=== PATIENT | female | born 1995 | race Caucasian/White ===

== ENCOUNTER 2017-12-11 09:32 | Inpatient (IN) | payer MEDICAID ==
[2017-12-11] MEDS ORDERED: ceFAZolin 2 GM in Premix Bag 1 BAG IV ONE (09:46)
[2017-12-11] MEDS ORDERED: Sodium Chloride 0.9% 10 ML Syringe FLUSH PRN (09:46)
[2017-12-11] MEDS ORDERED: Sodium Chloride 0.9% 2.5 ML Syringe FLUSH PRN (09:46)
[2017-12-11] MEDS: Lactated Ringers 1,000 ML IV SCH ×2 (09:58→10:58)
[2017-12-11] MEDS ORDERED: Oxytocin/0.9 % Sodium Chloride 30 UNIT/500 ML BAG IV SCH (10:00)
[2017-12-11] MEDS ORDERED: Citric Acid/Sodium Citrate Solution 30 ML Cup PO SCH (10:00)
[2017-12-11] MEDS ORDERED: ceFAZolin 1 GM Vial ONE (10:23)
[2017-12-11] MEDS ORDERED: Oxytocin 10 Units/1 ML SDV ONE (10:23)
[2017-12-11] MEDS ORDERED: Sodium Chloride 0.9% 20 ML ONE (10:23)
[2017-12-11] MEDS ORDERED: Morphine PF 1 MG/ML Amp ONE (10:23)
[2017-12-11] MEDS ORDERED: ePHEDrine 50 MG/ML SDV ONE (10:23)
[2017-12-11] MEDS ORDERED: Metoclopramide 10 MG/2 ML SDV ONE (11:00)
[2017-12-11] MEDS ORDERED: Phenylephrine/Normal Saline 100 MCG/ML 10 ML Syringe ONE (11:01)
[2017-12-11] MEDS ORDERED: fentaNYL 100 MCG/2 ML SDV ONE (11:12)
[2017-12-11] MEDS ORDERED: Ketorolac 30 MG/ML SDV ONE (12:09)
--- NOTE | 2017-12-11 12:15 | PCM.POSTAN ---
POST ANESTHESIA ASSESSMENT - MENTAL STATUS Mental Status: Alert, Oriented - RESPIRATORY Respiratory Status: Respiratory Rate WNL, Airway Patent, O2 Saturation Stable - CARDIOVASCULAR CV Status: Pulse Rate WNL, Blood Pressure Stable - GASTROINTESTINAL GI Status: No Symptoms - POST OP HYDRATION Hydration Status: Adequate & Stable
--- NOTE | 2017-12-11 12:35 | OR ---
SURGEON: Ramesh Wood MD DATE OF PROCEDURE: PREOPERATIVE DIAGNOSES: 1. Intrauterine at 39 weeks plus. 2. Previous section, admitted for elective repeat section. POSTOPERATIVE DIAGNOSES: 1. Intrauterine at 39 weeks plus. 2. Previous section, admitted for elective repeat section. OPERATION PERFORMED: Repeat low-transverse section. DRAMA THERAPIST: Kiersten Hernández. ANESTHESIA: Spinal, Ramy Ca and Dr. Bonds. ESTIMATED BLOOD LOSS: 650 mL. COMPLICATIONS: None. FINDINGS: Male fetus. score reported to be 8 and 9. The weight is not available. Normal uterus, tubes, and ovaries. INDICATION FOR SURGERY: This patient is 22. She had a previous section. She is admitted for elective repeat section. Her followup in our clinic was uncomplicated. PROCEDURE IN DETAIL: The patient was brought to the OR, properly identified. After adequate level of spinal anesthesia with a [place] catheter in the bladder, the patient was prepped and draped in sterile fashion as usual. Time-out was taken to identify the patient and then low-transverse Pfannenstiel skin incision was done. Roverto's fascia and rectus fascia were opened in direction of the incision. The 2 recti muscles were and peritoneal cavity was entered. Bladder flap was raised in the usual manner pushing the bladder away from the lower uterine segment. Low-transverse uterine incision was done and extended manually and fetus was in a vertex position, delivered without any problem and handed to the nurse resuscitator, who was present at the time of the delivery. The placenta delivered spontaneous, complete, and intact. Then repair of the lower uterine segment done with 2-0 Vicryl continuous interlocking in 2 layers. Reperitonealization done with 3-0 Vicryl continuous and then the peritoneal cavity closed with 3-0 Vicryl continuous. The rectus fascia was closed with #1 PDS double strand continuous, the Roverto's fascia with 3-0 Vicryl continuous and the skin with Insorb skin clips and Dermabond . The instrument and sponge count was correct. The patient tolerated the procedure well, went to recovery room in stable general condition. PEYTON / JEFERSON /[id number]
[2017-12-11] MEDS ORDERED: Naloxone 0.4 MG/ML Syringe IVPUSH PRN (12:50)
[2017-12-11] MEDS ORDERED: diphenhydrAMINE 50 MG/ML SDV IVPUSH PRN ×2 (12:52→19:21)
[2017-12-11] MEDS ORDERED: Promethazine 12.5 MG Supp RECTAL PRN (13:36)
[2017-12-11] MEDS ORDERED: Scopolamine 1.5 MG Transdermal Patch TRDERM PRN (13:36)
--- NOTE | 2017-12-11 16:10 | PCM.LDHP ---
L&D History of Present Illness - General Date of Service: 12/11/17 Admit Problem/Dx: Patient Status Order with Admit Dx/Problem 12/11/17 09:46 Patient Status [ADT] Routine Admission Diagnosis/Problem Admission Diagnosis/Problem Source of Information: Patient History Limitations: Reports: No Limitations - History of Present Illness Improves with: Reports: None Worsens with: Reports: None Associated Symptoms: Reports: N - Related Data Allergies/Adverse Reactions: Allergies Allergy/AdvReac Type Severity Reaction Status Date / Time No Known Allergies Allergy Verified 12/11/17 14:30 Home Medications: Home Meds . [No Known Home Meds] 11/25/17 [History] Past Medical History Cardiovascular History: Reports: Other (See Below) Other Cardiovascular History: murmur as a child Gastrointestinal History: Reports: Other (See Below) Other Gastrointestinal History: heartburn during Genitourinary History: Reports: None [employer] History: Reports: Endocrine/Metabolic History: Reports: Obesity/BMI 30+, Other (See Below) Other Endocrine/Metabolic History: states gestational diabetic with first - Past Surgical History Head Surgeries/Procedures: Reports: None GI Surgical History: Reports: Cholecystectomy Female Surgical History: Reports: Section Social & Family History - Family History Family Medical History: Noncontributory - Tobacco Use Smoking Status *Q: Never Smoker - Recreational Drug Use Recreational Drug Use: No H&P Review of Systems - Review of Systems: Review Of Systems: See Below General: Reports: No Symptoms HEENT: Reports: No Symptoms Pulmonary: Reports: No Symptoms Cardiovascular: Reports: No Symptoms Gastrointestinal: Reports: No Symptoms Genitourinary: Reports: No Symptoms Musculoskeletal: Reports: No Symptoms Skin: Reports: No Symptoms Psychiatric: Reports: No Symptoms Neurological: Reports: No Symptoms Hematologic/Lymphatic: Reports: No Symptoms Immunologic: Reports: No Symptoms L&D Exam - Exam Exam: See Below - Vital Signs Vital Signs: Last Vital Signs Temp 36.0 C 12/11/17 14:32 Pulse 72 12/11/17 14:32 Resp 14 12/11/17 14:32 BP 123/62 12/11/17 14:32 Pulse Ox 99 12/11/17 14:32 Weight: 105.687 kg - OB Specific Fundal Height In cm: 38 Contraction Intensity: Mild Movement: Active Heart Tones: Present Presentation: Vertex - Exam General: Alert, Oriented HEENT: PERRLA, Conjunctiva Clear, EACs Clear, EOMI, Hearing Intact, Mucosa Moist & [place], Nares Patent, Normal Nasal Septum, Posterior Pharynx Clear, TMs Clear Neck: Supple, Trachea Midline Lungs: Clear to Auscultation, Normal Respiratory Effort Cardiovascular: Regular Rate, Regular Rhythm GI/Abdominal Exam: Normal Bowel Sounds, Soft, Non-Tender, No Organomegaly, No Distention, No Abnormal Bruit, No Mass, Pelvis Stable Rectal Exam: Normal Exam, Normal Rectal Tone Genitourinary: Normal external exam, Normal bimanual exam, Normal speculum exam Back Exam: Normal Inspection, Full Range of Motion Extremities: Normal Inspection, Normal Range of Motion, Non-Tender, No Pedal Edema, Normal Capillary Refill Skin: Warm, Dry, Intact Neurological: Cranial Nerves Intact, Reflexes Equal Bilateral Psychiatric: Alert, Normal Affect, Normal Mood - Patient Data Lab Results Last 24 hrs: Laboratory Results - last 24 hr 12/11/17 12/11/17 12/11/17 Range/Units 09:50 09:50 12:26 WBC 7.18 (4.0-11.0) K/uL RBC 3.84 L (4.30-5.90) M/uL Hgb 10.9 L (12.0-16.0) g/dL Hct 32.1 L (36.0-46.0) % MCV 83.6 (80.0-98.0) fL MCH 28.4 (27.0-32.0) pg MCHC 34.0 (31.0-37.0) g/dL RDW Std Deviation 50.3 (28.0-62.0) fl RDW Coeff of Renetta 17 H (11.0-15.0) % Plt Count 114 L (150-400) K/uL MPV 11.40 (7.40-12.00) fL Nucleated RBC % 0.0 /100WBC Nucleated RBCs # 0 K/uL Blood Type O NEGATIVE Antibody Screen NEGATIVE Screen NEGATIVE (NEGATIVE) RhIG Candidate? YES Rhogam Indicated YES, BABY RH POS H Result Diagrams: 12/11/17 09:50 Problem List Initiated/Reviewed/Updated: Yes Orders Last 24hrs: Active Orders 24 hr Category Date Time Status Patient Status [ADT] Routine ADT 12/11/17 09:46 Active Bradycardia-Neuroaxis [employer] [RC] ROUTINE Care 12/11/17 12:50 Active Non Stress Test [RC] PER UNIT ROUTINE Care 12/11/17 09:46 Active Hypertension-Neuroaxis [employer] [RC] ROUTINE Care 12/11/17 12:50 Active Hypotension-Neuroaxis [employer] [RC] ROUTINE Care 12/11/17 12:50 Active Notify Provider Vital Signs [RC] PRN Care 12/11/17 09:47 Active Oxygen Therapy [RC] PER UNIT ROUTINE Care 12/11/17 12:50 Active Procedure Site Prep Instruct [RC] ASDIRECTED Care 12/11/17 09:46 Active Up ad Chery [RC] ASDIRECTED Care 12/11/17 09:46 Active Verify Patient Consent Obtain [RC] ASDIRECTED Care 12/11/17 09:46 Active Vital Signs [RC] PER UNIT ROUTINE Care 12/11/17 09:46 Active Vital Signs [RC] Q1H Care 12/11/17 12:50 Active SCREEN [BBK] Routine Lab 12/11/17 12:26 Results RH IMMUNE GLOBULIN [BBK] Routine Lab 12/11/17 12:26 Results RHOGAM, [RHIG WORKUP, ] [BBK] Lab 12/11/17 12:26 Results Routine Citric Acid/Sodium Citrate [Bicitra Solution] Med 12/11/17 10:00 Active 30 ml PO .ONCE Lactated Ringers [Ringers, Lactated] 1,000 ml Med 12/11/17 10:00 Active IV .BOLUS Nalbuphine [Nubain] Med 12/11/17 12:50 Active 5 mg IVPUSH Q3H PRN Naloxone [Narcan] Med 12/11/17 12:50 Active 0.1 mg IVPUSH ONETIME PRN Oxytocin/0.9 % Sodium Chloride [Oxytocin 30 Unit/500 ML Med 12/11/17 10:00 Active -NS] 30 unit in 500 ml IV TITRATE Promethazine [Phenadoz] Med 12/11/17 13:36 Active 12.5 mg RECTAL Q6H PRN Scopolamine [Transderm-Scop] Med 12/11/17 13:36 Active 1.5 mg TRDERM .ONCE PRN Sodium Chloride 0.9% [Saline Flush] Med 12/11/17 09:46 Active 10 ml FLUSH ASDIRECTED PRN Sodium Chloride 0.9% [Saline Flush] Med 12/11/17 09:46 Active 2.5 ml FLUSH ASDIRECTED PRN diphenhydrAMINE [Benadryl] Med 12/11/17 12:52 Active 25 mg IVPUSH Q6H PRN AN Neuroaxis [employer] Precaution Reflex [OM.PC] PER Oth 12/11/17 11:00 Ordered UNIT ROUTINE AN Neuroaxis [employer] Precaution Reflex [OM.PC] PER Oth 12/12/17 11:00 Ordered UNIT ROUTINE Peripheral IV Insertion Adult [OM.PC] Routine Oth 12/11/17 09:46 Ordered Schedule Procedure [COMM] Per Unit Routine Oth 12/11/17 09:46 Ordered Resuscitation Status Routine Resus Stat 12/11/17 09:46 Ordered Medication Orders Citric Acid/Sodium Citrate (Bicitra Solution) 30 ml PO .ONCE LISA Diphenhydramine HCl (Benadryl) 25 mg IVPUSH Q6H PRN PRN Reason: pruritis Stop: 12/12/17 11:00 Lactated Ringer's (Ringers, Lactated) 1,000 mls @ 500 mls/hr IV .BOLUS LISA Last Admin: 12/11/17 10:58 Dose: 1,000 mls/hr Infusion: 12/11/17 10:58 Dose: 1,000 mls/hr Admin: 12/11/17 09:58 Dose: 1,000 mls/hr Oxytocin/Sodium Chloride (Oxytocin 30 Unit/500 Ml-Ns) 30 unit in 500 mls @ 250 mls/hr IV TITRATE LISA Nalbuphine HCl (Nubain) 5 mg IVPUSH Q3H PRN PRN Reason: Pruritis Stop: 12/12/17 12:50 Naloxone HCl (Narcan) 0.1 mg IVPUSH ONETIME PRN PRN Reason: RR<6 WITH STIMULATION Stop: 12/12/17 12:51 Promethazine HCl (Phenadoz) 12.5 mg RECTAL Q6H PRN PRN Reason: Nausea/Vomiting Stop: 12/12/17 11:00 Scopolamine (Transderm-Scop) 1.5 mg TRDERM .ONCE PRN PRN Reason: Post Op Nausea Last Admin: 04/30/18 14:00 Dose: 1.5 mg Sodium Chloride (Saline Flush) 10 ml FLUSH ASDIRECTED PRN PRN Reason: Keep Vein Open Sodium Chloride (Saline Flush) 2.5 ml FLUSH ASDIRECTED PRN PRN Reason: Keep Vein Open Assessment/Plan Comment:: Elective C/Section.
[2017-12-11] MEDS ORDERED: Lanolin 100% Cream 7 GM Tube TOP PRN (19:21)
[2017-12-11] MEDS ORDERED: Acetaminophen/oxyCODONE 325-5 MG Tab PO PRN (19:21)
[2017-12-11] MEDS ORDERED: Bisacodyl 10 MG Supp RECTAL PRN (19:21)
[2017-12-11] MEDS ORDERED: Ondansetron 4 MG/2 ML SDV IVPUSH PRN (19:21)
[2017-12-11] MEDS ORDERED: Lactated Ringers 1,000 ML IV SCH (19:30)
[2017-12-11] MEDS: Ketorolac 30 MG/ML SDV IVPUSH SCH (20:15)
[2017-12-11] MEDS: Docusate Sodium 100 MG Cap PO SCH (20:17)
[2017-12-12] MEDS: Ketorolac 30 MG/ML SDV IVPUSH SCH ×3 (02:16→14:00)
--- NOTE | 2017-12-12 06:15 | PCM48HPAN ---
Post Anesthesia Note - EVALUATION WITHIN 48HRS OF ANESTHETIC Vital Signs in Normal Range: Yes Patient Participated in Evaluation: Yes Respiratory Function Stable: Yes Airway Patent: Yes Cardiovascular Function Stable: Yes Hydration Status Stable: Yes Pain Control Satisfactory: Yes Nausea and Vomiting Control Satisfactory: Yes Mental Status Recovered: Yes Pulse Rate: 62 Resp Rate: 15 Blood Pressure: 133/60 - COMMENTS/OBSERVATIONS Free Text/Narrative:: Pt sitting up . Pt states that nausea resolved yesterday evening and benedryl helped with pruritis. No apparent anesthesia complications.
[2017-12-12] MEDS: Nalbuphine 10 MG/1 ML Vial IVPUSH PRN ×2 (06:39→12:04)
[2017-12-12] MEDS: Docusate Sodium 100 MG Cap PO SCH ×2 (09:19→20:41)
[2017-12-12] MEDS: Acetaminophen/oxyCODONE 325-5 MG Tab PO PRN ×3 (09:20→18:19)
--- NOTE | 2017-12-12 11:22 | PCM.PNPP ---
- General Info Date of Service: 12/12/17 Functional Status: Reports: Pain Controlled - Review of Systems General: Reports: No Symptoms HEENT: Reports: No Symptoms Pulmonary: Reports: No Symptoms Cardiovascular: Reports: No Symptoms Gastrointestinal: Reports: No Symptoms Genitourinary: Reports: No Symptoms Musculoskeletal: Reports: No Symptoms Skin: Reports: No Symptoms Neurological: Reports: No Symptoms Psychiatric: Reports: No Symptoms - General Info Date of Service: 12/12/17 - Patient Data Vital Signs - Most Recent: Last Vital Signs Temp 36.4 C 12/12/17 05:00 Pulse 84 12/12/17 07:00 Resp 15 12/12/17 07:00 BP 133/60 12/12/17 06:15 Pulse Ox 98 12/12/17 07:00 Weight - Most Recent: 105.687 kg I&O - Last 24 Hours: Intake & Output 12/11/17 12/12/17 12/12/17 22:59 06:59 14:59 Output Total 500 Balance -500 Lab Results - Last 24 Hours: Laboratory Results - last 24 hr 12/11/17 12/12/17 Range/Units 12:26 06:03 Hgb 9.0 L (12.0-16.0) g/dL Hct 27.2 L (36.0-46.0) % Screen NEGATIVE (NEGATIVE) RhIG Candidate? YES Rhogam Indicated YES, BABY RH POS H Med Orders - Current: Current Medications Bisacodyl (Dulcolax) 10 mg RECTAL .ONCE PRN PRN Reason: Constipation Citric Acid/Sodium Citrate (Bicitra Solution) 30 ml PO .ONCE LISA Diphenhydramine HCl (Benadryl) 25 mg IVPUSH Q6H PRN PRN Reason: Itching or Nausea Docusate Sodium (Colace) 100 mg PO BID [facility] Last Admin: 12/12/17 09:19 Dose: 100 mg Emollient Ointment (Lansinoh Hpa) 0 gm TOP ASDIRECTED PRN PRN Reason: Sore Nipples Lactated Ringer's (Ringers, Lactated) 1,000 mls @ 500 mls/hr IV .BOLUS [facility] Last Admin: 12/11/17 10:58 Dose: 1,000 mls/hr Oxytocin/Sodium Chloride (Oxytocin 30 Unit/500 Ml-Ns) 30 unit in 500 mls @ 250 mls/hr IV TITRATE [facility] Lactated Ringer's (Ringers, Lactated) 1,000 mls @ 125 mls/hr IV ASDIRECTED [facility] Ibuprofen (Motrin) 800 mg PO Q8H PRN PRN Reason: mild pain or fever Ketorolac Tromethamine (Toradol) 30 mg IVPUSH Q6H LISA Stop: 12/12/17 14:01 Last Admin: 12/12/17 09:20 Dose: 30 mg Nalbuphine HCl (Nubain) 5 mg IVPUSH Q3H PRN PRN Reason: Pruritis Stop: 12/12/17 12:50 Last Admin: 12/12/17 06:39 Dose: 5 mg Naloxone HCl (Narcan) 0.1 mg IVPUSH ONETIME PRN PRN Reason: RR<6 WITH STIMULATION Stop: 12/12/17 12:51 Ondansetron HCl (Zofran) 4 mg IVPUSH Q4H PRN PRN Reason: Nausea/Vomiting Oxycodone/Acetaminophen (Percocet 325-5 Mg) 1 tab PO Q4H PRN PRN Reason: Pain (moderate 4-6) Oxycodone/Acetaminophen (Percocet 325-5 Mg) 2 tab PO Q4H PRN PRN Reason: Pain (moderate 4-6) Last Admin: 12/12/17 09:20 Dose: 2 tab Scopolamine (Transderm-Scop) 1.5 mg TRDERM .ONCE PRN PRN Reason: Post Op Nausea Last Admin: 12/11/17 14:00 Dose: 1.5 mg Sodium Chloride (Saline Flush) 10 ml FLUSH ASDIRECTED PRN PRN Reason: Keep Vein Open Sodium Chloride (Saline Flush) 2.5 ml FLUSH ASDIRECTED PRN PRN Reason: Keep Vein Open Discontinued Medications Cefazolin Sodium (Ancef) Confirm Administered Dose 2 gm .ROUTE .STK-MED ONE Stop: 12/11/17 10:24 Diphenhydramine HCl (Benadryl) 25 mg IVPUSH Q6H PRN PRN Reason: pruritis Stop: 12/12/17 11:00 Last Admin: 12/12/17 04:17 Dose: 25 mg Ephedrine Sulfate (Ephedrine Sulfate) Confirm Administered Dose 50 mg .ROUTE .STK-MED ONE Stop: 12/11/17 10:24 Fentanyl (Sublimaze) Confirm Administered Dose 100 mcg .ROUTE .STK-MED ONE Stop: 12/11/17 11:13 Cefazolin Sodium/Dextrose 2 gm (/ Premix) 50 mls @ 100 mls/hr IV ONETIME ONE Stop: 12/11/17 10:15 Last Admin: 12/11/17 19:27 Dose: Not Given Sodium Chloride (Normal Saline) Confirm Administered Dose 20 mls @ as directed .ROUTE .STK-MED ONE Stop: 12/11/17 10:24 Ketorolac Tromethamine (Toradol) Confirm Administered Dose 30 mg .ROUTE .STK- MED ONE Stop: 12/11/17 12:10 Last Admin: 12/11/17 19:26 Dose: Not Given Metoclopramide HCl (Reglan) Confirm Administered Dose 10 mg .ROUTE .STK-MED ONE Stop: 12/11/17 11:01 Morphine Sulfate (Duramorph Pf) Confirm Administered Dose 1 mg .ROUTE .STK-MED ONE Stop: 12/11/17 10:24 Oxytocin (Pitocin) Confirm Administered Dose 20 unit .ROUTE .STK-MED ONE Stop: 12/11/17 10:24 Phenylephrine HCl (Phenylephrine In Ns 100 Mcg/Ml) Confirm Administered Dose 1 mg .ROUTE .STK-MED ONE Stop: 12/11/17 11:02 Promethazine HCl (Phenadoz) 12.5 mg RECTAL Q6H PRN PRN Reason: Nausea/Vomiting Stop: 12/12/17 11:00 - Interaction Infant Disposition, : in Room with Family Infant Interaction: Holding Infant Feeding: Attempted ; Nursed Fair/Poor Support Person: Significant Other - Recovery Exam Fundal Tone: Firm Fundal Level: At Umbilicus Fundal Placement: Midline Lochia Amount: Scant Lochia Color: Rubra/Red Perineum Description: Intact, Minimal Bruising/Swelling Episiotomy/Laceration: None Bladder Status: Indwelling Catheter in Place Urinary Elimination: Indwelling Catheter - Exam General: Alert, Oriented HEENT: Pupils Equal Neck: Supple Lungs: Clear to Auscultation, Normal Respiratory Effort Cardiovascular: Regular Rate, Regular Rhythm GI/Abdominal Exam: Normal Bowel Sounds, Soft, Non-Tender, No Organomegaly, No Distention, No Abnormal Bruit, No Mass, Pelvis Stable Extremities: Normal Inspection, Normal Range of Motion, Non-Tender, No Pedal Edema, Normal Capillary Refill Skin: Warm, Dry, Intact Wound/Incisions: Healing Well Neurological: No New Focal Deficit Psy/Mental Status: Alert, Normal Affect, Normal Mood - Problem List Review Problem List Initiated/Reviewed/Updated: Yes - My Orders Last 24 Hours: My Active Orders 12/11/17 12:26 SCREEN [BBK] Routine RH IMMUNE GLOBULIN [BBK] Routine RHOGAM, [RHIG WORKUP, ] [BBK] Routine 12/11/17 19:21 Acetaminophen/oxyCODONE [Percocet 325-5 MG] 1 tab PO Q4H PRN Acetaminophen/oxyCODONE [Percocet 325-5 MG] 2 tab PO Q4H PRN Bisacodyl [Dulcolax] 10 mg RECTAL .ONCE PRN Lanolin [Lansinoh HPA] See Dose Instructions TOP ASDIRECTED PRN Ondansetron [Zofran] 4 mg IVPUSH Q4H PRN diphenhydrAMINE [Benadryl] 25 mg IVPUSH Q6H PRN 12/11/17 19:22 Ambulate [RC] PER UNIT ROUTINE Communication Order [RC] PER UNIT ROUTINE Communication Order [RC] PER UNIT ROUTINE Communication Order [RC] Per Unit Routine May Shower [RC] ASDIRECTED RT Incentive Spirometry [RC] Q2HWA Vital Signs [RC] PER UNIT ROUTINE Assess Lochia [WOMSER] Per Unit Routine Assess Uterine Involution [WOMSER] Per Unit Routine Breast Pump [WOMSER] Per Unit Routine Peripheral IV Discontinue [OM.PC] Routine Sequential Compression Device [OM.PC] Per Unit Routine 12/11/17 19:24 Notify Provider Intake and Out [RC] ASDIRECTED Notify Provider Vital Signs [RC] ASDIRECTED 12/11/17 19:30 Lactated Ringers [Ringers, Lactated] 1,000 ml IV ASDIRECTED 12/11/17 20:00 Ketorolac [Toradol] 30 mg IVPUSH Q6H 12/11/17 21:00 Docusate Sodium [Colace] 100 mg PO BID 12/12/17 20:00 Ibuprofen [Motrin] 800 mg PO Q8H PRN 05/01/18 Breakfast Regular Diet [DIET] - Assessment Assessment:: Status post section postoperative day #1 patient is doing well having incision is clean and dry she is ambulatory [place] catheter was removed voiding without any problem normal lochia if she continued to do well with plan to discharge patient tomorrow - Plan Plan:: Elective C/Section.
[2017-12-12] MEDS ORDERED: diphenhydrAMINE 25 MG Cap PO PRN (20:31)
[2017-12-12] MEDS: Ibuprofen 800 MG Tab PO PRN (20:41)
[2017-12-13] MEDS: Ibuprofen 800 MG Tab PO PRN (04:29)
[2017-12-13] MEDS: Acetaminophen/oxyCODONE 325-5 MG Tab PO PRN (08:35)
[2017-12-13] MEDS: Docusate Sodium 100 MG Cap PO SCH (08:35)
--- NOTE | 2017-12-13 08:41 | PCM.DCSUM1 ---
Discharge Summary - Discharge Data Discharge Date: 12/13/17 Discharge Disposition: Home, Self-Care 01 Condition: Good - Patient Instructions Diet: Usual Diet as Tolerated Activity: As Tolerated Driving: Do Not Drive Showering/Bathing: December Shower Wound/Incision Care: Keep Operative Site/Wound Site Clean and Dry Notify Provider of: Fever, Increased Pain, Swelling and Redness, Drainage, Nausea and/or Vomiting - Discharge Plan Home Medications: Home Meds . [No Known Home Meds] 11/25/17 [History] Patient Handouts: Delivery, Care After, Home Care Instructions for Mom Referrals: [facility] [Outside] Yeimy Franco CNM [Mid-] - (2 week- December 20 @ 3:00pm w/ Yeimy Franco week- January 31 @ 10:45am w/ Yeimy Franoc ) - General Info Date of Service: 12/13/17 Functional Status: Reports: Pain Controlled - Review of Systems General: Reports: No Symptoms HEENT: Reports: No Symptoms Pulmonary: Reports: No Symptoms Cardiovascular: Reports: No Symptoms Gastrointestinal: Reports: No Symptoms Genitourinary: Reports: No Symptoms Musculoskeletal: Reports: No Symptoms Skin: Reports: No Symptoms Neurological: Reports: No Symptoms Psychiatric: Reports: No Symptoms - Patient Data Vitals - Most Recent: Last Vital Signs Temp 36.2 C 12/12/17 20:52 Pulse 87 12/12/17 20:52 Resp 20 12/12/17 20:52 BP 133/82 12/12/17 20:52 Pulse Ox 99 12/12/17 20:52 Weight - Most Recent: 105.687 kg I&O - Last 24 hours: Intake & Output 12/12/17 12/13/17 12/13/17 22:59 06:59 14:59 Intake Total 2 Balance 2 Lab Results - Last 24 hrs: Laboratory Results - last 24 hr 12/11/17 Range/Units 12:26 Screen NEGATIVE (NEGATIVE) RhIG Candidate? YES Rhogam Indicated YES, BABY RH POS H Med Orders - Current: Current Medications Bisacodyl (Dulcolax) 10 mg RECTAL .ONCE PRN PRN Reason: Constipation Citric Acid/Sodium Citrate (Bicitra Solution) 30 ml PO .ONCE LISA Diphenhydramine HCl (Benadryl) 25 mg IVPUSH Q6H PRN PRN Reason: Itching or Nausea Last Admin: 12/12/17 16:39 Dose: 25 mg Diphenhydramine HCl (Benadryl) 25 mg PO Q6H PRN PRN Reason: Itching Last Admin: 12/12/17 20:41 Dose: 25 mg Docusate Sodium (Colace) 100 mg PO BID LISA Last Admin: 12/13/17 08:35 Dose: 100 mg Emollient Ointment (Lansinoh Hpa) 0 gm TOP ASDIRECTED PRN PRN Reason: Sore Nipples Lactated Ringer's (Ringers, Lactated) 1,000 mls @ 500 mls/hr IV .BOLUS [facility] Last Admin: 12/11/17 10:58 Dose: 1,000 mls/hr Oxytocin/Sodium Chloride (Oxytocin 30 Unit/500 Ml-Ns) 30 unit in 500 mls @ 250 mls/hr IV TITRATE LISA Lactated Ringer's (Ringers, Lactated) 1,000 mls @ 125 mls/hr IV ASDIRECTED [facility] Ibuprofen (Motrin) 800 mg PO Q8H PRN PRN Reason: mild pain or fever Last Admin: 12/13/17 04:29 Dose: 800 mg Ondansetron HCl (Zofran) 4 mg IVPUSH Q4H PRN PRN Reason: Nausea/Vomiting Oxycodone/Acetaminophen (Percocet 325-5 Mg) 1 tab PO Q4H PRN PRN Reason: Pain (moderate 4-6) Last Admin: 12/13/17 00:06 Dose: 1 tab Oxycodone/Acetaminophen (Percocet 325-5 Mg) 2 tab PO Q4H PRN PRN Reason: Pain (moderate 4-6) Last Admin: 12/13/17 08:35 Dose: 2 tab Scopolamine (Transderm-Scop) 1.5 mg TRDERM .ONCE PRN PRN Reason: Post Op Nausea Last Admin: 12/11/17 14:00 Dose: 1.5 mg Sodium Chloride (Saline Flush) 10 ml FLUSH ASDIRECTED PRN PRN Reason: Keep Vein Open Sodium Chloride (Saline Flush) 2.5 ml FLUSH ASDIRECTED PRN PRN Reason: Keep Vein Open Discontinued Medications Cefazolin Sodium (Ancef) Confirm Administered Dose 2 gm .ROUTE .[facility] ONE Stop: 12/11/17 10:24 Diphenhydramine HCl (Benadryl) 25 mg IVPUSH Q6H PRN PRN Reason: pruritis Stop: 12/12/17 11:00 Last Admin: 12/12/17 04:17 Dose: 25 mg Ephedrine Sulfate (Ephedrine Sulfate) Confirm Administered Dose 50 mg .ROUTE .STK-MED ONE Stop: 12/11/17 10:24 Fentanyl (Sublimaze) Confirm Administered Dose 100 mcg .ROUTE .STK-MED ONE Stop: 12/11/17 11:13 Cefazolin Sodium/Dextrose 2 gm (/ Premix) 50 mls @ 100 mls/hr IV ONETIME ONE Stop: 12/11/17 10:15 Last Admin: 12/11/17 19:27 Dose: Not Given Sodium Chloride (Normal Saline) Confirm Administered Dose 20 mls @ as directed .ROUTE .STK-MED ONE Stop: 12/11/17 10:24 Ketorolac Tromethamine (Toradol) Confirm Administered Dose 30 mg .ROUTE .STK- MED ONE Stop: 12/11/17 12:10 Last Admin: 12/11/17 19:26 Dose: Not Given Ketorolac Tromethamine (Toradol) 30 mg IVPUSH Q6H LISA Stop: 12/12/17 14:01 Last Admin: 12/12/17 14:00 Dose: 30 mg Metoclopramide HCl (Reglan) Confirm Administered Dose 10 mg .ROUTE .STK-MED ONE Stop: 12/11/17 11:01 Morphine Sulfate (Duramorph Pf) Confirm Administered Dose 1 mg .ROUTE .STK-MED ONE Stop: 12/11/17 10:24 Nalbuphine HCl (Nubain) 5 mg IVPUSH Q3H PRN PRN Reason: Pruritis Stop: 12/12/17 12:50 Last Admin: 12/12/17 12:04 Dose: 5 mg Naloxone HCl (Narcan) 0.1 mg IVPUSH ONETIME PRN PRN Reason: RR<6 WITH STIMULATION Stop: 12/12/17 12:51 Oxytocin (Pitocin) Confirm Administered Dose 20 unit .ROUTE .STK-MED ONE Stop: 12/11/17 10:24 Phenylephrine HCl (Phenylephrine In Ns 100 Mcg/Ml) Confirm Administered Dose 1 mg .ROUTE .STK-MED ONE Stop: 12/11/17 11:02 Promethazine HCl (Phenadoz) 12.5 mg RECTAL Q6H PRN PRN Reason: Nausea/Vomiting Stop: 12/12/17 11:00 - Exam General: Reports: Alert, Oriented HEENT: Reports: Pupils Equal, Pupils Reactive, EOMI, Mucous Membr. Moist/[place] Neck: Reports: Supple Lungs: Reports: Clear to Auscultation, Normal Respiratory Effort Cardiovascular: Reports: Regular Rate, Regular Rhythm GI/Abdominal Exam: Normal Bowel Sounds, Soft, Non-Tender, No Organomegaly, No Distention, No Abnormal Bruit, No Mass, Pelvis Stable (Female) Exam: Normal External Exam, Normal Speculum Exam, Normal Bimanual Exam Rectal (Female) Exam: Normal Exam, Normal Rectal Tone Back Exam: Reports: Normal Inspection, Full Range of Motion Extremities: Normal Inspection, Normal Range of Motion, Non-Tender, No Pedal Edema, Normal Capillary Refill Skin: Reports: Warm, Dry, Intact Wound/Incisions: Reports: Healing Well Neurological: Reports: No New Focal Deficit Psy/Mental Status: Reports: Alert, Normal Affect, Normal Mood
== END 2017-12-13 11:30 | disposition home or self-care (01) | DRG 766 ==
LOC: MW.OB 09:32 → MW.MS 12-12 19:00
PROVIDERS: ADMIT Obstetrics & Gynecology; ATTEND Obstetrics & Gynecology
PROC: 10D00Z1 Extraction of Products of Conception, Low, Open Approach (ICD-10-PCS; principal; 2017-12-11)
DX: O34.211 Maternal care for low transverse scar from previous cesarean delivery (principal); Z3A.39 39 weeks gestation of pregnancy; Z37.0 Single live birth
CPT/HCPCS: 36415; 59025; 85014; 85018; 85027; 85460; 86850; 86900; 86901; A9270-GY; J0690; J1200; J1885; J2274; J2300; J2590; J2765; J2790; J3010; J7120

== ENCOUNTER 2018-01-02 20:29 | Emergency (ER) | payer MEDICAID ==
[2018-01-02] MEDS ORDERED: cefTRIAXone 1,000 MG in Lidocaine 1% 4 ML IM ONE (21:06)
[2018-01-02] MEDS ORDERED: Sulfamethoxazole/Trimethoprim 800-160 MG Tab PO ONE (21:06)
--- NOTE | 2018-01-02 21:11 | EDM.PDOC ---
ED HPI GENERAL MEDICAL PROBLEM - General Chief Complaint: Skin Complaint Stated Complaint: POSSIBLE STAPH INFECTION/BUTT Time Seen by Provider: 01/02/18 21:06 Source of Information: Reports: Patient - History of Present Illness INITIAL COMMENTS - FREE TEXT/NARRATIVE: HISTORY AND PHYSICAL: History of present illness: [Patient has had 2 small abscesses on her buttock right and left, on the left her had performed a needle drainage and this is essentially clearing up there is some mild redness around this area and is healing by second intent no longer indurated no fluctuance associated with this lesion, it is essentially a drained abscess that is healing, with now a small cellulitis surrounding. On the right buttock she has a similar lesion that her also needle drained was able to get a small amount of exudate from on exam she has induration surrounding the lesion was able to express one drop of exudate did culture this is no fluctuance associated. Induration is approximately 2 inches in length 1 inch in width surrounding a central nidus in which the exudate was expressed No changes in our mother but is not breast-feeding Ancef antibiotic choices unaffected No fever nausea vomiting chills sweats no chest pain shortness breath headache dizziness or palpitation no bowel or urine symptoms Review of systems: As per history of present illness and below otherwise all systems reviewed and negative. Past medical history: As per history of present illness and as reviewed below otherwise noncontributory. Surgical history: As per history of present illness and as reviewed below otherwise noncontributory. Social history: No reported history of drug or alcohol abuse. Family history: As per history of present illness and as reviewed below otherwise noncontributory. Physical exam: HEENT: Atraumatic, normocephalic, pupils reactive, negative for conjunctival pallor or scleral icterus, mucous membranes moist, throat clear, neck supple, nontender, trachea midline. Lungs: Clear to auscultation, breath sounds equal bilaterally, chest nontender. Heart: S1S2, regular, negative for clicks, rubs, or JVD. Abdomen: Soft, nondistended, nontender. Negative for masses or hepatosplenomegaly. Negative for costovertebral tenderness. Pelvis: Stable nontender. Genitourinary: Deferred. Rectal: Deferred. Extremities: Atraumatic, negative for cords or calf pain. Neurovascular unremarkable. Neuro: Awake, alert, oriented. Cranial nerves II through XII unremarkable. Cerebellum unremarkable. Motor and sensory unremarkable throughout. Exam nonfocal. Skin as per history of present illness otherwise unremarkable Diagnostics: [Wound culture ] Therapeutics: [1 g Rocephin IM, Bactrim double strength by mouth now Bactrim double strength by mouth twice a day #20 no refill ] Impression: [#1 left buttock- abscess post I&D performed by #2 right buttock -abscess post I&D performed by scant exudate present , small surrounding cellulitis Definitive disposition and diagnosis as appropriate pending reevaluation and review of above. lower bottom Pain Score (Numeric/FACES): 10 - Related Data Allergies Allergy/AdvReac Type Severity Reaction Status Date / Time No Known Allergies Allergy Verified 01/02/18 20:49 Home Meds: Home Meds . 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 ED EXAM, SKIN/RASH Exam: See Below Course - Vital Signs Last Recorded V/S: Last Vital Signs Temp 98 F 01/02/18 20:29 Pulse 108 H 01/02/18 20:29 Resp 18 01/02/18 20:29 BP 140/65 01/02/18 20:29 Pulse Ox 94 L 01/02/18 20:29 - Orders/Labs/Meds Orders: Active Orders 24 hr Category Date Time Status Sulfamethoxazole/Trimethoprim [Septra DS] Med 01/02/18 21:06 Once 1 tab PO ONETIME ONE cefTRIAXone [Rocephin] 1,000 mg Med 01/02/18 21:06 Ordered Lidocaine 1% [Xylocaine-MPF 1%] 4 ml IM ONETIME Departure - Departure Time of Disposition: 21:10 Disposition: Home, Self-Care 01 Condition: Good Clinical Impression: Abscess, Cellulitis - Discharge Information Referrals: PCP,None [Primary Care Provider] - Additional Instructions: Express exudate as needed Return to ER if symptoms persist or worsen or fever nausea vomiting chills sweats despite antibiotics Follow-up with primary care in one week sooner as needed [facility] - Primary Care [address] [place] [id number] The following information is given to patients seen in the emergency department who are being discharged to home. This information is to outline your options for follow-up care. We provide all patients seen in our emergency department with a follow-up referral. The need for follow-up, as well as the timing and circumstances, are variable depending upon the specifics of your emergency department visit. If you don't have a primary care physician on staff, we will provide you with a referral. We always advise you to contact your personal physician following an emergency department visit to inform them of the circumstance of the visit and for follow-up with them and/or the need for any referrals to a consulting specialist. The emergency department will also refer you to a specialist when appropriate. This referral assures that you have the opportunity for follow-up care with a specialist. All of these measure are taken in an effort to provide you with optimal care, which includes your follow-up. Under all circumstances we always encourage you to contact your private physician who remains a resource for coordinating your care. When calling for follow-up care, please make the office aware that this follow-up is from your recent emergency room visit. If for any reason you are refused follow-up, please contact the [facility] emergency department at and asked to speak to the emergency department charge nurse. - My Orders Last 24 Hours: My Active Orders 01/02/18 21:06 Sulfamethoxazole/Trimethoprim [Septra DS] 1 tab PO ONETIME ONE cefTRIAXone [Rocephin] 1,000 mg Lidocaine 1% [Xylocaine-MPF 1%] 4 ml IM ONETIME - Assessment/Plan Last 24 Hours: My Active Orders 01/02/18 21:06 Sulfamethoxazole/Trimethoprim [Septra DS] 1 tab PO ONETIME ONE cefTRIAXone [Rocephin] 1,000 mg Lidocaine 1% [Xylocaine-MPF 1%] 4 ml IM ONETIME
== END 2018-01-02 21:35 | disposition home or self-care (01) ==
LOC: MW.ED 20:29
DX: L02.31 Cutaneous abscess of buttock (principal); L03.317 Cellulitis of buttock
CPT/HCPCS: 87070; 87077; 87186; 96372; 99283; A9270; J0696; J2001

== ENCOUNTER 2018-02-25 13:15 | Emergency (ER) | payer BC, MEDICAID ==
--- NOTE | 2018-02-25 13:57 | EDM.PDOC ---
ED HPI GENERAL MEDICAL PROBLEM - General Chief Complaint: Abdominal Pain Stated Complaint: abdominal pain Time Seen by Provider: 02/25/18 13:22 Source of Information: Reports: Patient History Limitations: Reports: No Limitations - History of Present Illness INITIAL COMMENTS - FREE TEXT/NARRATIVE: History of present illness: []Patient with a positive urine test 3 days ago. She complains of right-sided pelvic pain and vaginal bleeding or discharge. She has no pain with urination, back pain, nausea or vomiting. Patient is requesting a test Review of systems: As per history of present illness and below otherwise all systems reviewed and negative. Past medical history: As per history of present illness and as reviewed below otherwise noncontributory. Surgical history: As per history of present illness and as reviewed below otherwise noncontributory. Social history: No reported history of drug or alcohol abuse. Family history: As per history of present illness and as reviewed below otherwise noncontributory. Physical exam: General: Well developed, well nourished in NAD HEENT: Atraumatic, normocephalic, pupils reactive, negative for conjunctival pallor or scleral icterus, mucous membranes moist, throat clear, neck supple, nontender, trachea midline. Lungs: Clear to auscultation, breath sounds equal bilaterally, chest nontender. Heart: S1S2, regular, negative for clicks, rubs, or JVD. Abdomen: Soft, nondistended, nontender. Negative for masses or hepatosplenomegaly. Negative for costovertebral tenderness. Pelvis: Stable nontender. Genitourinary: Deferred. Rectal: Deferred. Extremities: Atraumatic, negative for cords or calf pain. Neurovascular unremarkable. Neuro: Awake, alert, oriented. Cranial nerves II through XII unremarkable. Cerebellum unremarkable. Motor and sensory unremarkable throughout. Exam nonfocal. Diagnostics: []WBC negative chemistry negative fever and negative hCG negative Therapeutics: [] Impression: [] check Plan: []Follow-up with PMD as needed Definitive disposition and diagnosis as appropriate pending reevaluation and review of above. Right Lower Abdomen Pain Score (Numeric/FACES): 8 - Related Data Allergies Allergy/AdvReac Type Severity Reaction Status Date / Time No Known Allergies Allergy Verified 02/25/18 13:33 Home Meds: Home Meds . 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: Endocrine/Metabolic History: Reports: Obesity/BMI 30+, Other (See Below) Other Endocrine/Metabolic History: states gestational diabetic with first - Infectious Disease History Infectious Disease History: Reports: None - Past Surgical History Head Surgeries/Procedures: Reports: None GI Surgical History: Reports: Cholecystectomy Female Surgical History: Reports: Section Social & Family History - Family History Family Medical History: Noncontributory - Tobacco Use Smoking Status *Q: Never Smoker - Caffeine Use Caffeine Use: Reports: None - Recreational Drug Use Recreational Drug Use: No ED ROS GENERAL - Review of Systems Review Of Systems: See Below (See history of present illness) ED EXAM, RENAL/ - Physical Exam Exam: See Below (See history of present illness) Course - Vital Signs Last Recorded V/S: Last Vital Signs Temp 97.4 F 02/25/18 13:34 Pulse 94 02/25/18 13:34 Resp 18 02/25/18 13:34 BP 111/78 02/25/18 13:34 Pulse Ox 100 02/25/18 13:34 - Orders/Labs/Meds Orders: Active Orders 24 hr Category Date Time Status COMPREHENSIVE METABOLIC PN,CMP [CHEM] Stat Lab 02/25/18 13:38 Received CULTURE URINE [RM] Stat Lab 02/25/18 13:50 Ordered HCG QUALITATIVE,URINE [URCHEM] Stat Lab 02/25/18 13:50 Ordered UA W/MICROSCOPIC [URIN] Stat Lab 02/25/18 13:50 Ordered Labs: Laboratory Tests 02/25/18 02/25/18 02/25/18 Range/Units 13:38 13:50 13:50 WBC 9.15 (4.0-11.0) K/uL RBC 4.96 (4.30-5.90) M/uL Hgb 13.2 (12.0-16.0) g/dL Hct 38.7 (36.0-46.0) % MCV 78.0 L (80.0-98.0) fL MCH 26.6 L (27.0-32.0) pg MCHC 34.1 (31.0-37.0) g/dL RDW Std Deviation 42.0 (28.0-62.0) fl RDW Coeff of Renetta 15 (11.0-15.0) % Plt Count 200 (150-400) K/uL MPV 11.00 (7.40-12.00) fL Neut % (Auto) 64.2 (48.0-80.0) % Lymph % (Auto) 28.4 (16.0-40.0) % Cache % (Auto) 6.1 (0.0-15.0) % Eos % (Auto) 1.1 (0.0-7.0) % Baso % (Auto) 0.2 (0.0-1.5) % Neut # (Auto) 5.9 H (1.4-5.7) K/uL Lymph # (Auto) 2.6 H (0.6-2.4) K/uL Cache # (Auto) 0.6 (0.0-0.8) K/uL Eos # (Auto) 0.1 (0.0-0.7) K/uL Baso # (Auto) 0.0 (0.0-0.1) K/uL Nucleated RBC % 0.0 /100WBC Nucleated RBCs # 0 K/uL Urine Color YELLOW Urine Appearance CLEAR Urine pH 5.5 (5.0-8.0) Ur Specific Adger >= 1.030 (1.001-1.035) Urine Protein NEGATIVE (NEGATIVE) mg/dL Urine Glucose (UA) NEGATIVE (NEGATIVE) mg/dL Urine Ketones NEGATIVE (NEGATIVE) mg/dL Urine Occult Blood NEGATIVE (NEGATIVE) Urine Nitrite NEGATIVE (NEGATIVE) Urine Bilirubin NEGATIVE (NEGATIVE) Urine Urobilinogen 0.2 (<2.0) EU/dL Ur Leukocyte Esterase TRACE (NEGATIVE) Urine RBC 0-2 (0-2/HPF) Urine WBC 0-2 (0-5/HPF) Ur Epithelial Cells FEW (NONE-FEW) Urine Bacteria FEW (NEGATIVE) Urine HCG, Qual NEGATIVE (NEGATIVE) Departure - Departure Time of Disposition: 14:05 Disposition: Home, Self-Care 01 Condition: Good Clinical Impression: Pelvic pain - Discharge Information Referrals: PCP,None [Primary Care Provider] - Forms: ED Department Discharge Additional Instructions: The following information is given to patients seen in the emergency department who are being discharged to home. This information is to outline your options for follow-up care. We provide all patients seen in our emergency department with a follow-up referral. The need for follow-up, as well as the timing and circumstances, are variable depending upon the specifics of your emergency department visit. If you don't have a primary care physician on staff, we will provide you with a referral. We always advise you to contact your personal physician following an emergency department visit to inform them of the circumstance of the visit and for follow-up with them and/or the need for any referrals to a consulting specialist. The emergency department will also refer you to a specialist when appropriate. This referral assures that you have the opportunity for follow-up care with a specialist. All of these measure are taken in an effort to provide you with optimal care, which includes your follow-up. Under all circumstances we always encourage you to contact your private physician who remains a resource for coordinating your care. When calling for follow-up care, please make the office aware that this follow-up is from your recent emergency room visit. If for any reason you are refused follow-up, please contact the [facility] Emergency Department at and asked to speak to the emergency department charge nurse. [facility] [address] [place] [address] - My Orders Last 24 Hours: My Active Orders 02/25/18 13:38 COMPREHENSIVE METABOLIC PN,CMP [CHEM] Stat 02/25/18 13:50 CULTURE URINE [RM] Stat HCG QUALITATIVE,URINE [URCHEM] Stat UA W/MICROSCOPIC [URIN] Stat - Assessment/Plan Last 24 Hours: My Active Orders 02/25/18 13:38 COMPREHENSIVE METABOLIC PN,CMP [CHEM] Stat 02/25/18 13:50 CULTURE URINE [RM] Stat HCG QUALITATIVE,URINE [URCHEM] Stat UA W/MICROSCOPIC [URIN] Stat
[2018-02-25 14:08] LABS: CHLORIDE,CL 105 mmol/L (98-107); SODIUM,NA 139 mmol/L (136-145)
== END 2018-02-25 14:20 | disposition home or self-care (01) ==
LOC: MW.ED 13:15
DX: R10.2 Pelvic and perineal pain (principal)
CPT/HCPCS: 36415; 80053; 81001; 81025; 85025; 87086; 99284